=== PATIENT | male | born 1930 | race Caucasian/White ===

== ENCOUNTER → 2017-11-22 | Outpatient (CLI) | payer MEDICARE, BC ==
--- NOTE | 2017-11-24 11:06 | RSPPFT ---
DATE OF PROCEDURE: 11/22/17 COMMENTS: VOLUMES DYNAMIC: FVC and FEV1 normal. STATIC: TLC, RV normal; FRC mildly reduced. FLOWS: FEV1% and FEF 25-75 normal. DIFFUSION: Mildly reduced. FLOW VOLUME LOOP: Mild restrictive configuration. 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 There is no significant airways obstruction although there is improvement post-bronchodilator. Clinical correlation is required.
== END ==
LOC: HRSP 13:10
PROVIDERS: ATTEND Internal Medicine Cardiovascular Disease
DX: R06.02 Shortness of breath (principal)
CPT/HCPCS: 94060; 94726; 94729